=== PATIENT | female | born 1930 | race Caucasian/White ===

== ENCOUNTER 2016-06-22 11:24 | Emergency (ER) | payer MEDICARE, OTHER ==
[~2016-06-22 11:24] MED LIST: CEFDINIR300 MG PO; COUMADIN4 M1 PO; COUMADIN4 MG PO; DIOVAN HCT 3201 EAC1 PO; FLAGYL500 MG PO; SYNTHROID88 MC1 PO; TOPROL XL50 M1 PO; TUSSIN CF COUG118 M2 PO
[2016-06-22 12:08] LABS: BASO % 0.6 % (0-2); BASO ABSOLUTE COUNT 0.1 tho/cmm (0.0-0.2); EOS % 0.4 % (0-7); HCT-HEMATOCRIT 32.5 % (34.0-49.0); HGB-HEMOGLOBIN 10.9 gm/dl (12.0-15.5); IMMATURE GRANULOCYTES ABSOLUTE 0.04 tho/cmm (0-0.03); IMMATURE GRANULOCYTES PERCENT 0.5 % (0-0.3); LYMPH % 13.5 % (20-45); LYMPH ABSOLUTE COUNT 1.1 tho/cmm (0.8-4.5); MCH (MEAN CORPUSCULAR HGB) 29.5 pg (28.0-32.0); MCHC MEAN CORPUSCULAR HGB CONC 33.5 % (32.0-36.0); MCV (MEAN CELL VOLUME) 88.1 fl (82.0-96.0); MONO % 7.5 % (0-12); MONOCYTE ABSOLUTE COUNT 0.6 tho/cmm (0.0-1.2); NEUTROPHIL ABSOLUTE COUNT 6.5 tho/cmm (1.6-8.0); NEUTROPHIL-AUTOMATED 6.5 tho/cmm (1.6-8.0); NEUTROPHILS % 77.5 % (40-80); PLATELET COUNT 361 tho/cmm (150-450); RED BLOOD COUNT 3.69 mil/cmm (4.00-5.20); RED CELL DISTRIBUTION WIDTH 13.6 % (12.4-16.4); WHITE BLOOD COUNT 8.4 tho/cmm (4.0-10.0)
[2016-06-22 12:14] LABS: INR 2.9 INR (0.9-1.1); PROTHROMBIN TIME 35.1 SECONDS (9.0-13.6)
[2016-06-22 12:20] LABS: ANION GAP 15 mmol/L (0-20); BLOOD UREA NITROGEN 30 mg/dl (6-24); CALCIUM 8.8 mg/dl (8.5-10.5); CARBON DIOXIDE-VENOUS 25 mmol/L (22-32); CHLORIDE 96 mmol/l (96-110); CREATININE 1.14 mg/dl (0.50-1.10); GLUCOSE 99 mg/dL (70-110); SODIUM 131 mmol/L (135-145); eGFR VALUE FOR BLACK 51 mL/Min
[2016-06-22] MEDS ORDERED: LASIX20 M1 PO (13:20)
== END 2016-06-22 14:25 ==
LOC: EDMED 11:24
PROVIDERS: Emergency Medicine
DX: I10 Essential (primary) hypertension (principal); I48.2 Chronic atrial fibrillation; I50.9 Heart failure, unspecified; E03.9 Hypothyroidism, unspecified; R19.7 Diarrhea, unspecified; Z90.49 Acquired absence of other specified parts of digestive tract; Z79.01 Long term (current) use of anticoagulants; Z79.890 Hormone replacement therapy; Z79.899 Other long term (current) drug therapy
CPT/HCPCS: J7030

== ENCOUNTER 2016-07-06 19:28 | Observation (INO) | payer MEDICARE, OTHER ==
[~2016-07-06 19:28] MED LIST changes: +LASIX20 M1 PO
[2016-07-06 20:46] LABS: BASO % 0.3 % (0-2); EOS % 1.4 % (0-7); EOSINOPHIL ABSOLUTE COUNT 0.2 tho/cmm (0.0-0.7); HCT-HEMATOCRIT 33.2 % (34.0-49.0); HGB-HEMOGLOBIN 11.2 gm/dl (12.0-15.5); IMMATURE GRANULOCYTES ABSOLUTE 0.06 tho/cmm (0-0.03); IMMATURE GRANULOCYTES PERCENT 0.6 % (0-0.3); LYMPH % 16.7 % (20-45); LYMPH ABSOLUTE COUNT 1.8 tho/cmm (0.8-4.5); MCH (MEAN CORPUSCULAR HGB) 28.7 pg (28.0-32.0); MCHC MEAN CORPUSCULAR HGB CONC 33.7 % (32.0-36.0); MCV (MEAN CELL VOLUME) 85.1 fl (82.0-96.0); MEAN PLATELET VOLUME 8.5 cmc (9.4-12.4); MONO % 8.7 % (0-12); MONOCYTE ABSOLUTE COUNT 0.9 tho/cmm (0.0-1.2); NEUTROPHIL ABSOLUTE COUNT 7.6 tho/cmm (1.6-8.0); NEUTROPHIL-AUTOMATED 7.6 tho/cmm (1.6-8.0); NEUTROPHILS % 72.3 % (40-80); PLATELET COUNT 443 tho/cmm (150-450); RED CELL DISTRIBUTION WIDTH 14.2 % (12.4-16.4); WHITE BLOOD COUNT 10.5 tho/cmm (4.0-10.0)
[2016-07-06 20:51] LABS: INR 4.7 INR (0.9-1.1); PROTHROMBIN TIME 57.4 SECONDS (9.0-13.6)
[2016-07-06 21:02] LABS: ANION GAP 14 mmol/L (0-20); BLOOD UREA NITROGEN 32 mg/dl (6-24); CALCIUM 8.3 mg/dl (8.5-10.5); CARBON DIOXIDE-VENOUS 26 mmol/L (22-32); CHLORIDE 91 mmol/l (96-110); CREATININE 1.23 mg/dl (0.50-1.10); GLUCOSE 140 mg/dL (70-110); POTASSIUM 3.7 mmol/L (3.7-5.1); SODIUM 127 mmol/L (135-145); eGFR VALUE FOR BLACK 46 mL/Min
[2016-07-06 22:16] LABS: URINE BILIRUBIN NEGATIVE (NEG); URINE BLOOD MODERATE (NEG); URINE GLUCOSE (UA) NEGATIVE (NEG); URINE KETONE NEGATIVE (NEG); URINE LEUKOCYTE ESTERASE POSITIVE (NEG); URINE NITRITE NEGATIVE (NEG); URINE PROTEIN MODERATE (NEG); URINE SPECIFIC GRAVITY 1.015 (1.003-1.030)
[2016-07-06 22:25] LABS: URINE APPEARANCE CLEAR; URINE COLOR YELLOW
[2016-07-06 22:42] LABS: URINE EPITHELIAL CELLS RARE /[HPF] (0-10)
[2016-07-07 06:55] LABS: BLOOD UREA NITROGEN 30 mg/dl (6-24); CALCIUM 8.5 mg/dl (8.5-10.5); CARBON DIOXIDE-VENOUS 29 mmol/L (22-32); CREATININE 1.18 mg/dl (0.50-1.10); GLUCOSE 104 mg/dL (70-110); eGFR VALUE FOR BLACK 49 mL/Min
[2016-07-07 07:10] LABS: ANION GAP 12 mmol/L (0-20); CHLORIDE 92 mmol/l (96-110); POTASSIUM 3.8 mmol/L (3.7-5.1); SODIUM 129 mmol/L (135-145)
[2016-07-08 05:23] LABS: ANION GAP 10 mmol/L (0-20); BLOOD UREA NITROGEN 30 mg/dl (6-24); CALCIUM 8.9 mg/dl (8.5-10.5); CARBON DIOXIDE-VENOUS 34 mmol/L (22-32); CHLORIDE 91 mmol/l (96-110); CREATININE 1.18 mg/dl (0.50-1.10); GLUCOSE 94 mg/dL (70-110); POTASSIUM 3.5 mmol/L (3.7-5.1); SODIUM 131 mmol/L (135-145); eGFR VALUE FOR BLACK 49 mL/Min
[2016-07-08 05:31] LABS: INR 2.6 INR (0.9-1.1); PROTHROMBIN TIME 30.8 SECONDS (9.0-13.6)
[2016-07-08] MEDS ORDERED: ALDACTONE25 M1 PO (14:12)
== END 2016-07-08 15:07 ==
LOC: EDMED 19:28 → PCUB 22:44
PROVIDERS: Physician Assistant; ADMIT Internal Medicine
DX: I13.0 Hypertensive heart and chronic kidney disease with heart failure and stage 1 through stage 4 chronic kidney disease, or unspecified chronic kidney disease (principal); I50.33 Acute on chronic diastolic (congestive) heart failure; N18.2 Chronic kidney disease, stage 2 (mild); I48.2 Chronic atrial fibrillation; I07.1 Rheumatic tricuspid insufficiency; I31.3 Pericardial effusion (noninflammatory); I27.2 Other secondary pulmonary hypertension; Z86.73 Personal history of transient ischemic attack (TIA), and cerebral infarction without residual deficits; Z87.01 Personal history of pneumonia (recurrent); Z79.01 Long term (current) use of anticoagulants; Z79.899 Other long term (current) drug therapy; Z98.49 Cataract extraction status, unspecified eye; Z90.49 Acquired absence of other specified parts of digestive tract; Z98.890 Other specified postprocedural states
CPT/HCPCS: G0378; J1940

== ENCOUNTER 2016-09-28 10:31 | Inpatient (IN) | payer MEDICARE, OTHER ==
[~2016-09-28 10:31] MED LIST changes: +ALDACTONE25 M1 PO
[2016-09-28] MEDS ORDERED: HYDRALAZINE HCL25 M1 PO (10:47)
[2016-09-28] MEDS ORDERED: VENTOLIN HFA18 G2 INH (10:47)
[2016-09-28] MEDS ORDERED: LEVAQUIN500 M1 PO (10:47)
[2016-09-28] MEDS ORDERED: DIOVAN320 M1 PO (10:48)
[2016-09-28 11:11] LABS: BASO % 0.2 % (0-2); EOS % 0.6 % (0-7); EOSINOPHIL ABSOLUTE COUNT 0.1 tho/cmm (0.0-0.7); HCT-HEMATOCRIT 35.9 % (34.0-49.0); HGB-HEMOGLOBIN 12.2 gm/dl (12.0-15.5); IMMATURE GRANULOCYTES ABSOLUTE 0.06 tho/cmm (0-0.03); IMMATURE GRANULOCYTES PERCENT 0.6 % (0-0.3); LYMPH % 10.8 % (20-45); LYMPH ABSOLUTE COUNT 1.2 tho/cmm (0.8-4.5); MCH (MEAN CORPUSCULAR HGB) 28.9 pg (28.0-32.0); MCV (MEAN CELL VOLUME) 85.1 fl (82.0-96.0); MEAN PLATELET VOLUME 8.9 cmc (9.4-12.4); MONO % 12.6 % (0-12); MONOCYTE ABSOLUTE COUNT 1.4 tho/cmm (0.0-1.2); NEUTROPHIL ABSOLUTE COUNT 8.1 tho/cmm (1.6-8.0); NEUTROPHIL-AUTOMATED 8.1 tho/cmm (1.6-8.0); NEUTROPHILS % 75.2 % (40-80); PLATELET COUNT 315 tho/cmm (150-450); RED BLOOD COUNT 4.22 mil/cmm (4.00-5.20); RED CELL DISTRIBUTION WIDTH 14.8 % (12.4-16.4); WHITE BLOOD COUNT 10.7 tho/cmm (4.0-10.0)
[2016-09-28 11:13] LABS: INR 2.8 INR (0.9-1.1); PROTHROMBIN TIME 33.2 SECONDS (9.0-13.6)
[2016-09-28 11:26] LABS: ALB/GLOB RATIO 0.7 (0.8-2.0); ALKALINE PHOSPHATASE 83 U/L (33-138); ALT/SGPT 47 U/L (12-78); ANION GAP 16 mmol/L (0-20); AST/SGOT 58 U/L (10-40); BILIRUBIN,TOTAL 0.8 mg/dl (0-1.5); BLOOD UREA NITROGEN 27 mg/dl (6-24); CALCIUM 8.5 mg/dl (8.5-10.5); CARBON DIOXIDE-VENOUS 21 mmol/L (22-32); CHLORIDE 90 mmol/l (96-110); CREATININE 1.24 mg/dl (0.50-1.10); GLUCOSE 102 mg/dL (70-110); POTASSIUM 4.1 mmol/L (3.7-5.1); SODIUM 123 mmol/L (135-145); eGFR VALUE FOR BLACK 46 mL/Min
[2016-09-28 11:35] LABS: PROCALCITONIN 0.14 ng/ml (0.05-0.09)
[2016-09-28] MEDS ORDERED: OCUVITE SOFTGE1 EACH PO (11:44)
[2016-09-28 12:02] LABS: URINE BILIRUBIN NEGATIVE (NEG); URINE BLOOD MODERATE (NEG); URINE GLUCOSE (UA) NEGATIVE (NEG); URINE KETONE NEGATIVE (NEG); URINE LEUKOCYTE ESTERASE NEGATIVE (NEG); URINE NITRITE NEGATIVE (NEG); URINE PROTEIN MODERATE (NEG); URINE SPECIFIC GRAVITY 1.015 (1.003-1.030)
[2016-09-28 12:05] LABS: URINE APPEARANCE CLEAR; URINE COLOR YELLOW
[2016-09-28 12:11] LABS: URINE WBC 0-3 /[HPF] (0-5)
[2016-09-29 02:42] LABS: INR 3.2 INR (0.9-1.1); PROTHROMBIN TIME 37.9 SECONDS (9.0-13.6)
[2016-09-29 02:48] LABS: ANION GAP 14 mmol/L (0-20); BLOOD UREA NITROGEN 25 mg/dl (6-24); CALCIUM 7.9 mg/dl (8.5-10.5); CARBON DIOXIDE-VENOUS 24 mmol/L (22-32); CHLORIDE 92 mmol/l (96-110); CREATININE 1.23 mg/dl (0.50-1.10); GLUCOSE 97 mg/dL (70-110); POTASSIUM 3.8 mmol/L (3.7-5.1); SODIUM 126 mmol/L (135-145); eGFR VALUE FOR BLACK 46 mL/Min
[2016-09-30 05:26] LABS: INR 2.7 INR (0.9-1.1); PROTHROMBIN TIME 32.6 SECONDS (9.0-13.6)
[2016-09-30 05:28] LABS: BASO % 0.2 % (0-2); EOS % 2.3 % (0-7); EOSINOPHIL ABSOLUTE COUNT 0.2 tho/cmm (0.0-0.7); HCT-HEMATOCRIT 33.9 % (34.0-49.0); HGB-HEMOGLOBIN 11.5 gm/dl (12.0-15.5); IMMATURE GRANULOCYTES ABSOLUTE 0.06 tho/cmm (0-0.03); IMMATURE GRANULOCYTES PERCENT 0.7 % (0-0.3); LYMPH % 15.6 % (20-45); LYMPH ABSOLUTE COUNT 1.4 tho/cmm (0.8-4.5); MCH (MEAN CORPUSCULAR HGB) 28.5 pg (28.0-32.0); MCHC MEAN CORPUSCULAR HGB CONC 33.9 % (32.0-36.0); MCV (MEAN CELL VOLUME) 84.1 fl (82.0-96.0); MEAN PLATELET VOLUME 8.7 cmc (9.4-12.4); MONO % 13.4 % (0-12); MONOCYTE ABSOLUTE COUNT 1.2 tho/cmm (0.0-1.2); NEUTROPHIL ABSOLUTE COUNT 5.8 tho/cmm (1.6-8.0); NEUTROPHIL-AUTOMATED 5.8 tho/cmm (1.6-8.0); NEUTROPHILS % 67.8 % (40-80); PLATELET COUNT 297 tho/cmm (150-450); RED BLOOD COUNT 4.03 mil/cmm (4.00-5.20); RED CELL DISTRIBUTION WIDTH 14.9 % (12.4-16.4); WHITE BLOOD COUNT 8.6 tho/cmm (4.0-10.0)
[2016-09-30 05:38] LABS: ANION GAP 14 mmol/L (0-20); BLOOD UREA NITROGEN 26 mg/dl (6-24); CALCIUM 8.3 mg/dl (8.5-10.5); CARBON DIOXIDE-VENOUS 26 mmol/L (22-32); CHLORIDE 96 mmol/l (96-110); CREATININE 1.32 mg/dl (0.50-1.10); GLUCOSE 85 mg/dL (70-110); POTASSIUM 3.5 mmol/L (3.7-5.1); SODIUM 132 mmol/L (135-145); eGFR VALUE FOR BLACK 42 mL/Min
[2016-09-30] MEDS ORDERED: ALDACTONE25 M1 PO (13:58)
[2016-09-30] MEDS ORDERED: LASIX40 M1 PO (13:59)
== END 2016-09-30 14:45 | DRG 292 ==
LOC: EDMED 10:31 → EMR2 12:24 → PCUA 14:29
PROVIDERS: Emergency Medicine; ADMIT Internal Medicine
DX: I50.33 Acute on chronic diastolic (congestive) heart failure (principal); E87.1 Hypo-osmolality and hyponatremia; N17.9 Acute kidney failure, unspecified; I48.91 Unspecified atrial fibrillation; Z79.01 Long term (current) use of anticoagulants; E03.9 Hypothyroidism, unspecified; I12.9 Hypertensive chronic kidney disease with stage 1 through stage 4 chronic kidney disease, or unspecified chronic kidney disease; N18.3 Chronic kidney disease, stage 3 (moderate); Z86.73 Personal history of transient ischemic attack (TIA), and cerebral infarction without residual deficits
CPT/HCPCS: J1940; J3475